=== PATIENT | male | born 1965 | race Caucasian/White ===

== ENCOUNTER 2020-06-14 22:13 | Emergency (ER) | payer OTHER ==
[~2020-06-14] VITALS: Ht 172.7 cm; Wt 131.5 kg
[2020-06-14 22:35] VITALS: BP 143/77
--- NOTE | 2020-06-14 22:40 | NUR ---
PT ABLE TO AMBULATE TO LOBBY WITH STEADY GAIT.
--- NOTE | 2020-06-15 00:21 | NUR ---
PT AMBULATED TO ER BED 08
--- NOTE | 2020-06-15 00:39 | NUR ---
54 Y/O MALE C/O LEG PAIN. DESCRIBES ITS BURNING PAIN /. NON PITTING EDEMA ON BILAT LEGS. PT STATES HE IS HOMELESS AND TOOK NAPROXEN BEFORE COMING IN TO ER. BILAT PEDAL PULSES 3+. SKIN WARM AND DRY. PMH: ARTHRITIS ON KNEES/HANDS, PRE-DIABETIC NKA
--- NOTE | 2020-06-15 01:03 | NUR ---
LAB AT BEDSIDE
--- NOTE | 2020-06-15 01:28 | NUR ---
PT AMBULATED TO RESTROOM. STEADY GAIT.
--- NOTE | 2020-06-15 01:29 | NUR ---
PT AMBULATED TO BED 08. STEADY GAIT.
[2020-06-15 01:30] LABS: BASOPHILS % (AUTO) 0.4 % (0.0-2.0); EOSINOPHILS # (AUTO) 0.2 K/uL (0-0.4); EOSINOPHILS % (AUTO) 3.6 % (0.0-4.0); HEMATOCRIT 34.3 % (36-52); HEMOGLOBIN 10.9 g/dL (12.0-18.0); LYMPHOCYTES # (AUTO) 1.6 K/uL (2.0-11.5); LYMPHOCYTES % (AUTO) 28.6 % (20.5-51.1); MEAN CORPUSCULAR HEMOGLOBIN 24 pg (27-31); MEAN CORPUSCULAR HGB CONC 32 g/dL (33-37); MEAN CORPUSCULAR VOLUME 75.3 fL (80-94); MONOCYTES # (AUTO) 0.6 K/uL (0.8-1.0); MONOCYTES % (AUTO) 10.3 % (1.7-9.3); NEUTROPHILS # (AUTO) 3.3 K/uL (1.8-7.7); NEUTROPHILS % (AUTO) 57.1 % (42.2-75.2); PLATELET COUNT (AUTO) 202 K/uL (140-450); RED BLOOD CELL COUNT(AUTO) 4.55 MIL/uL (4.20-6.10); RED CELL DISTRIBUTION WIDTH 16.5 % (11.6-13.7); WHITE BLOOD COUNT (AUTO) 5.8 K/uL (4.8-10.8)
[2020-06-15 01:43] LABS: ALBUMIN 3.2 g/dL (3.4-5.0); ANION GAP 11.5 (8-16); CARBON DIOXIDE 29.9 mmol/L (21-32); CREATININE 0.8 mg/dL (0.6-1.3); POTASSIUM 3.4 mmol/L (3.5-5.1); TOTAL BILIRUBIN 0.4 mg/dL (0.0-1.0)
[2020-06-15] MEDS ORDERED: HYDROcodone/APAP 10/325 MG 1 TAB TAB PO STA (02:12)
[2020-06-15] MEDS ORDERED: FUROSEMIDE 40 MG TAB PO ONE (02:15)
[2020-06-15 03:33] VITALS: BP 143/77
--- NOTE | 2020-06-15 03:33 | NUR ---
Patient discharged with v/s stable. Written and verbal after care instructions given and explained. Patient alert, oriented and verbalized understanding of instructions. Ambulatory with steady gait. All questions addressed prior to discharge. ID band removed. Patient advised to follow up with PMD. Rx of CEPHALAXIN, LASIX, NORCO given. Patient educated on indication of medication including possible reaction and side effects. Homeless Resources and Meal Packet Provided. Opportunity to ask questions provided and answered.
== END 2020-06-15 03:33 | disposition home or self-care (01) ==
LOC: MED 22:13
DX: L03.116 Cellulitis of left lower limb (principal); L03.115 Cellulitis of right lower limb; I87.8 Other specified disorders of veins; E11.9 Type 2 diabetes mellitus without complications; M13.869 Other specified arthritis, unspecified knee
CPT/HCPCS: 36415; 80053; 83880; 85025; 99283